=== PATIENT | male | born 1980 | race Caucasian/White ===

== ENCOUNTER 2016-11-17 20:04 | Emergency (ER) | payer OTHER ==
[2016-11-17 20:09] VITALS: BP 151/74
--- NOTE | 2016-11-17 21:00 | PROVIDER DOCUMENTATION ---
HPI-Respiratory General - General Source: patient <Leila Miller - Last Filed: 11/17/16 20:58> - General Source: patient - History of Present Illness-Resp Quality of Pain: reports: aching Severity in ED: reports: mild Onset/Duration: reports: this morning Timing: reports: still present Exposure: reports: unknown cause Cough Quality/Degree: reports: mild, productive cough, sputum Episode Frequency: no prior episodes Current Respiratory Medication Therapy: Initiated see nurses note Associated Symptoms: reports: cough, muscle/bodyaches Similar Symptoms Previously?: No Recently seen or treated by another doctor?: No <Usha Ashton - Last Filed: 11/17/16 21:05> - General Chief Complaint: Cold Symptoms Stated Complaint: BODY ACHES Time Seen by Provider: 11/17/16 20:15 Allergies/Adverse Reactions: Patient Allergies Allergy/AdvReac Type Severity Reaction Status Date / Time No Known Allergies Allergy Verified 10/26/16 21:54 Home Medications: Quetiapine [Seroquel] 25 mg PO HS 10/17/16 Trazodone [Desyrel] 50 mg PO HS 10/17/16 Famotidine [Pepcid] 20 mg PO DAILY PRN PRN 10/26/16 - History of Present Illness-Resp Nature of Presenting Problem: 36 year old M presents to the ED with a cc of cough and body aches with an onset of this morning. PT states that his cough has been productive of yellow/ green sputum. Denies fever, chills, sore throat, and ear pain. (Usha Ashton) Review of Systems - Adult - REVIEW OF SYSTEMS - ADULT Constitutional: denies: chills, fever Eyes: reports: no symptoms reported Ears, Nose, Mouth & Throat: denies: ear pain, throat pain Cardiovascular: reports: no symptoms reported Respiratory: reports: cough, excessive sputum production. denies: shortness of breath Gastrointestinal: denies: nausea, vomiting Genitourinary: reports: no symptoms reported Musculoskeletal: reports: muscle aches. denies: muscle weakness Integumentary: reports: no symptoms reported Neurological: reports: no symptoms reported Psychiatric: reports: no symptoms reported Endocrine: reports: no symptoms reported Hematologic/Lymphatic: reports: no symptoms reported Allergic/Immunologic: reports: no symptoms reported All Other Systems: Reviewed and Negative <Usha Ashton - Last Filed: 11/17/16 21:05> Past History - Adult - PAST MEDICAL HISTORY-ADULT Major Childhood Illnesses: reports: denies history Cardiovascular: reports: denies history Respiratory: reports: denies history Gastrointestinal: reports: denies history Genitourinary: reports: denies history Musculoskeletal: reports: arthritis, intervertebral disc disease, neck/back injury (inj was 2weeks ago, pt has been seen in ED/PCP both dx with mild concussion, neg ct), other fractures Neurological: reports: denies history Endocrine/Immune: reports: denies history Other Conditions: reports: denies history - PRIOR SURGERIES/PROCEDURES Surgical/Procedure History: reports: tonsillectomy, orthopedic (extremity) ( rotator cuff), other (Left leg and foot surgery/ x6 foot surgery) - PRIOR HOSPITALIZATIONS Prior Hospitalizations: reports: for other non-related - IMMUNIZATION STATUS Childhood Immunizations: See Nurse Assessment Flu Vaccine: See Nurse Assessment - FAMILY HISTORY Family History: reviewed, not pertinent <Leila Miller - Last Filed: 11/17/16 20:58> - PAST MEDICAL HISTORY-ADULT Review of Records: reports: Nursing Assessment Review, Medications Reviewed Major Childhood Illnesses: reports: denies history Respiratory: reports: sleep apnea - PRIOR SURGERIES/PROCEDURES Surgical/Procedure History: reports: tonsillectomy, orthopedic (extremity) - IMMUNIZATION STATUS Childhood Immunizations: See Nurse Assessment Flu Vaccine: See Nurse Assessment - SOCIAL HISTORY Smoking: non-smoker Substance Use: none/never Alcohol Use Frequency: never <Usha Ashton - Last Filed: 11/17/16 21:05> Physical Exam-General - PHYSICAL EXAM-ADULT Initial Vital Signs Reviewed: Yes - CONSTITUTIONAL General Appearance: appears well, alert, no apparent distress, obese - HEAD, EARS, NOSE, MOUTH & THROAT HENMT: normocephalic/atraumatic, moist mucous membranes, normal ENT inspection - RESPIRATORY Respiratory: chest non-tender, lungs clear, normal breath sounds - CARDIOVASCULAR Cardiovascular: normal peripheral pulses, regular rate, rhythm, no edema - GASTROINTESTINAL (ABDOMEN) Abdominal Exam: non tender, soft - SKIN Integumentary: normal color, normal turgor, warm/dry - PSYCHIATRIC Psych/Mental Status: normal mood/affect, normal thought content, normal thought process, oriented x 3 <Usha Ashton - Last Filed: 11/17/16 21:05> Progress <Alisa Millerdeja JacnitoHaritha - Last Filed: 11/17/16 20:58> - XRAY 1 XRAY Study: Chest Impression: Normal XRAY Interpretation: normal per Dr. Pike <PoliUsha - Last Filed: 11/17/16 21:05> - PLAN OF CARE/RESULTS Progress/Plan/Lab Results: plan of care: imaging, labs Orders Category Date Time Status CHEST-2 VIEWS [RAD] Stat Exams 11/17/16 20:16 Taken INFLUENZA SCREEN A/B Stat Lab 11/17/16 20:25 Completed Vital Signs - 24 hr 11/17/16 20:07 Temperature 97.8 F Pulse Rate 115 H Respiratory 18 Rate Blood Pressure 151/74 O2 Sat by Pulse 98 Oximetry Pt given results and will be d/c home w/ rx to follow up with PCP. Pt verbally understood instructions. PT remained clinically stable throughout the course of the ED stay and will return if symptoms worsen. (Usha Ashton) Departure - Departure Time of Disposition Order: 20:58 Certified Medical Emergency: Emergent <Demi Millerraisa JacintoHaritha - Last Filed: 11/17/16 20:58> <Usha Ashton - Last Filed: 11/17/16 21:05> - Departure DIAGNOSIS: Cough Disposition: HOME 01 Condition: Stable Additional Instructions: Follow up with your primary care doctor as needed. ED Follow Up Instructions: You have been treated by a care provider in the Emergency Department. These instructions are being provided to you so you can have an understanding of how to care for yourself upon discharge. Upon discharge from the Emergency Department, you are responsible for making arrangements for follow-up care by a physician of your choice. Take all prescribed medications as directed. Return to the Emergency Department immediately for any new or worsening symptoms. You may call the Physician Referral phone number at [phone] to obtain a list of Physicians who are taking new patients. Prescriptions: Benzonatate [Tessalon] 100 mg PO TID PRN PRN #20 capsule PRN Reason: Cough Referrals: Sushila Herndon MD [Primary Care Provider] - Attestation - Physician/ Mid-level Attestation Patient care was provided by Mid-level provider (MASONRY CONTRACTOR/PA):: Yes Mid-level provider:: Leila Miller Mid-level documentation review:: The Mid-level provider documentation, treatment plan and medical decision making was reviewed by the physician who agrees with all treatment and medical decision making by the P. <Leila Miller - Last Filed: 11/17/16 20:58> - Scribe Verification/Attestation Scribe:: Usha Ashton Acting as Scribe for:: Leila Miller Scribe documention review:: This chart was documented by a scribe and accurately reflects the service the provider performed and the decisions made by the provider. <Usha Ashton - Last Filed: 11/17/16 21:05> Physician Attestation - Physician Attestation I, the provider, attest to the following statement:: Leila Miller Physician documentation Attestation:: This documentation recorded by the scribe accurately reflects the service I personally performed and the decisions made by me. <Usha Ashton - Last Filed: 11/17/16 21:05>
--- NOTE | 2016-11-18 08:57 | Diag Imaging Result Document ---
PROCEDURE NAME: CHEST-2 VIEWS - 11/17/2016 CHEST X-RAY, 2 VIEWS: COMPARISON: 06/14/2015. FINDINGS: The lungs are normally expanded and clear. Heart size and mediastinal contours are normal. No pneumothorax or pleural effusion. IMPRESSION: Negative exam.
== END 2016-11-17 21:12 | disposition home or self-care (01) ==
LOC: ED 20:04
DX: R05 Cough (principal); R09.3 Abnormal sputum; M79.1 Myalgia; M19.90 Unspecified osteoarthritis, unspecified site; E66.9 Obesity, unspecified; Z79.899 Other long term (current) drug therapy
CPT/HCPCS: 71020; 87804; 99283

== ENCOUNTER 2017-01-24 19:53 | Emergency (ER) | payer OTHER ==
--- NOTE | 2017-01-24 20:40 | PROVIDER DOCUMENTATION ---
HPI-Musculoskeletal Pain/Inj <Jose L Glasgow - Last Filed: 01/24/17 21:17> <Usha Ashton - Last Filed: 01/24/17 21:20> - GENERAL Chief Complaint: Extremity Pain Stated Complaint: LT ARM PAIN Time Seen by Provider: 01/24/17 20:33 - HX OF PRESENT ILLNESS-MUSKULOSKELTAL Nature of Presenting Problem: Pt comes in with complaint of left elbow pain that is sharp and left shoulder pain that is sharp and nagging. He denies trauma or lifting any heavy objects. states it is somewhat better with rest and taking ibuprofen. He denies CP, N/V/D , dizziness, abd pain or LE (Jose L Glasgow) Review of Systems - Adult - REVIEW OF SYSTEMS - ADULT Constitutional: reports: no symptoms reported. denies: chills, fever, fatique, night sweats, weight gain, weight loss Eyes: reports: no symptoms reported. denies: decreased vision, blurred vision, eye pain, redness Ears, Nose, Mouth & Throat: reports: no symptoms reported. denies: ear discharge, ear pain, hearing loss, sinus problem, mouth/dental pain, mouth swelling, hoarseness, throat pain, throat swelling Cardiovascular: reports: no symptoms reported. denies: chest pain, edema, heart murmur, irregular heart rate, palpitations, poor circulation, PND, syncope Respiratory: reports: no symptoms reported. denies: chronic cough, cough, excessive sputum production, hemoptysis, shortness of breath, wheezing Gastrointestinal: reports: no symptoms reported. denies: abdominal pain, hematemesis, constipation, difficulty swallowing, nausea Genitourinary: reports: no symptoms reported. denies: dysuria, discharge, frequency, flank pain, frequent UTI's, hesitency, incontinence, urinary retention, urgency Musculoskeletal: reports: see HPI, joint pain, muscle aches. denies: bone pain , back pain, frequent leg cramps, joint swelling, muscle weakness, neck pain Integumentary: reports: no symptoms reported. denies: hives, hair loss, itching , mole changes, nail changes, rash, skin sores/ulcer, skin thickening Neurological: reports: no symptoms reported. denies: ataxia, headache/migraines , numbness, paresthesia, seizure, syncope, tremors Psychiatric: reports: no symptoms reported. denies: anxiety, anti-depressant use, alcohol/drug dependence, emotional problems, insomnia, panic attacks, suicidal thoughts Endocrine: reports: no symptoms reported. denies: change in skin pigment, excessive sweating, goiter, heat intolerance, increased hunger, increased thirst Hematologic/Lymphatic: reports: no symptoms reported. denies: blood clots, easy bruising, low blood count, swollen lymph nodes Allergic/Immunologic: reports: no symptoms reported. denies: allergic reactions , asthma, eczema, frequent infections, hives, positive PPD, urticaria All Other Systems: Reviewed and Negative <Jose L Glasgow - Last Filed: 01/24/17 21:17> Past History - Adult - PAST MEDICAL HISTORY-ADULT Review of Records: reports: Old Records Reviewed, Nursing Assessment Review, Medications Reviewed, Social history reviewed & non-contributory. Major Childhood Illnesses: reports: denies history Cardiovascular: reports: denies history Respiratory: reports: sleep apnea Gastrointestinal: reports: denies history Obstetrical/Gynecological: reports: denies history Genitourinary: reports: denies history Musculoskeletal: reports: arthritis, intervertebral disc disease, neck/back injury (inj was 2weeks ago, pt has been seen in ED/PCP both dx with mild concussion, neg ct), other fractures Neurological: reports: denies history Psychiatric: reports: bipolar Endocrine/Immune: reports: denies history Other Conditions: reports: denies history - PRIOR SURGERIES/PROCEDURES Surgical/Procedure History: reports: tonsillectomy, orthopedic (extremity) - PRIOR HOSPITALIZATIONS Prior Hospitalizations: reports: for other non-related - IMMUNIZATION STATUS Childhood Immunizations: See Nurse Assessment Flu Vaccine: See Nurse Assessment - FAMILY HISTORY Family History: reviewed, not pertinent - SOCIAL HISTORY Smoking: denies Substance Use: none/never Alcohol Use Frequency: never Living Situation: alone <Jose L Glasgow - Last Filed: 01/24/17 21:17> Physical Exam-Injury Related - Physical Exam-Injury Related Initial Vital Signs Reviewed: Yes General Appearance: appears well, alert, no apparent distress, obese Eyes: PERRL/EOMI, pink conjunctivae Head, Ears, Nose, Mouth & Throat: normocephalic/atraumatic, moist mucous membranes, normal ENT inspection Neck: non-tender, full range of motion, supple Respiratory: chest non-tender, lungs clear, normal breath sounds, no pleuratic chest pain, no respiratory distress, no accessory muscle use Cardiovascular: normal peripheral pulses, regular rate, rhythm, no edema, no gallop Abdominal Exam: normal bowel sounds, non tender, soft Back Exam: normal inspection, no CVA tenderness, no vertebral tenderness Extremity: normal range of motion, normal inspection, tenderness. 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 nml as tested, grossly normal Psych/Mental Status: normal mood/affect, normal thought content, normal thought process, oriented x 3 - Glascow Coma Score Best Eye Response (Derek): (4) open spontaneously Best Verbal Response (Jay): (5) oriented Best Motor Response (Derek): (6) obeys commands <Jose L Glasgow - Last Filed: 01/24/17 21:17> Progress - XRAY 1 XRAY: Left XRAY Study: Shoulder, Elbow Impression: Normal XRAY Interpretation: no fx, or dislocation (hcb) <Jose L Glasgow - Last Filed: 01/24/17 21:17> - EKG 1 Time of EKG reading by physician:: 20:07 EKG Read and Signed by:: Maycol Castellanos EKG Interpretation (*Must complete 3 of following elements*): Normal Rate: 99 Rhythm: NSR [place]: normal <Usha Ashton - Last Filed: 01/24/17 21:20> - PLAN OF CARE/RESULTS Progress/Plan/Lab Results: Vital Signs - 24 hr 01/24/17 20:00 Temperature 97.3 F L Pulse Rate 105 H Respiratory 18 Rate Blood Pressure 154/78 O2 Sat by Pulse 99 Oximetry (Jose L Glasgow) Departure - Departure Time of Disposition Order: 21:17 Certified Medical Emergency: Emergent <Jose L Glasgow - Last Filed: 01/24/17 21:17> <Usha Ashton - Last Filed: 01/24/17 21:20> - Departure DIAGNOSIS: Elbow pain, left Shoulder pain, acute Qualifiers: Laterality: left Qualified Code(s): M25.512 - Pain in left shoulder Disposition: HOME 01 Condition: Good Additional Instructions: follow up with ortho if needed ED Follow Up Instructions: You have been treated by a care provider in the Emergency Department. These instructions are being provided to you so you can have an understanding of how to care for yourself upon discharge. Upon discharge from the Emergency Department, you are responsible for making arrangements for follow-up care by a physician of your choice. Take all prescribed medications as directed. Return to the Emergency Department immediately for any new or worsening symptoms. You may call the Physician Referral phone number at [phone] to obtain a list of Physicians who are taking new patients. Prescriptions: Ibuprofen [Motrin] 800 mg PO Q8H PRN PRN #20 tablet PRN Reason: Pain Omeprazole [Prilosec] 40 mg PO DAILY #20 capsule.dr Referrals: Sushila Herndon MD [Primary Care Provider] - Kelle Rivera MD [STAFF PHYSICIAN] - Attestation - Physician/ HARRY Attestation Patient care was provided by Advanced Practice Provider:: Yes Advanced Practice Provider:: Jose L Glasgow Advanced Practice Provider documentation review:: The Mid-level provider documentation, treatment plan and medical decision making was reviewed by the physician who agrees with all treatment and medical decision making by the [facility]. <Jose L Glasgow - Last Filed: 01/24/17 21:17> Physician Attestation - Physician Attestation I, the provider, attest to the following statement:: Jose L Glagsow Physician documentation Attestation:: This documentation recorded by the scribe accurately reflects the service I personally performed and the decisions made by me. <Jose L Glasgow - Last Filed: 01/24/17 21:17>
[2017-01-24] MEDS ORDERED: DECADRON IM ONE (21:16)
[2017-01-24] MEDS ORDERED: TORADOL IM ONE (21:16)
[2017-01-24 21:36] VITALS: BP 142/71
--- NOTE | 2017-01-25 08:04 | Diag Imaging Result Document ---
PROCEDURE NAME: ELBOW COMPLETE LEFT - 01/24/2017 LEFT ELBOW THREE VIEWS: FINDINGS: No fracture. No dislocation. No joint space narrowing. No periosteal reaction. No sclerotic or lytic lesion. IMPRESSION: Negative exam.
--- NOTE | 2017-01-25 08:37 | Diag Imaging Result Document ---
PROCEDURE NAME: SHOULDER 1 VIEW LEFT - 01/24/2017 SINGLE FRONTAL RADIOGRAPH OF THE LEFT SHOULDER: COMPARISON: None available. FINDINGS: There is no discrete fracture, dislocation, or intrinsic osseous lesion. The visualized joint spaces are essentially unremarkable. The surrounding soft tissues are grossly unremarkable. IMPRESSION: No evidence of acute osseous abnormality.
--- NOTE | 2017-01-25 09:19 | EKG Report ---
Test Performed on : 01/24/2017 8:07:39 PM Test Reason : LT ARM PAIN Blood Pressure : / mmHG Vent. Rate : 099 BPM Atrial Rate : 099 BPM P-R Int : 128 ms QRS Dur : 100 ms QT Int : 358 ms P-R-T Axes : 048 004 044 degrees QTc Int : 459 ms Normal sinus rhythm. Normal ECG No previous ECGs available Unconfirmed Result
== END 2017-01-24 21:35 | disposition home or self-care (01) ==
LOC: ED 19:53
DX: M25.522 Pain in left elbow (principal); M25.512 Pain in left shoulder; M79.1 Myalgia; M19.90 Unspecified osteoarthritis, unspecified site; E66.9 Obesity, unspecified; F31.9 Bipolar disorder, unspecified; Z79.899 Other long term (current) drug therapy
CPT/HCPCS: 93005; J1885